=== PATIENT | male | born 1965 | race Caucasian/White ===

== ENCOUNTER 2017-08-04 16:38 | Inpatient (IN) | payer OTHER ==
[2017-08-04 20:00] VITALS: BP 133/78; PULSE 92; RESP 19; TEMP 96.8; O2SAT 97
[2017-08-04] MEDS ORDERED: SODIUM CHLORIDE 0.9% FLUSH 10 ML FLUSH IV FLUSH PRN (20:15)
[2017-08-04] MEDS ORDERED: NALOXONE HCL 0.4 MG/ML AMP IV PUSH PRN (20:15)
[2017-08-04] MEDS ORDERED: ONDANSETRON HCL 4 MG/2 ML VIAL IVP PRN (20:15)
--- NOTE | 2017-08-04 20:25 | HHI.HP ---
[facility] [place] [facility] Primary Care Physician Jorge Luis Medina MD Admission Diagnosis Diagnoses: Travel History International Travel<30 Days: No Contact w/Intl Traveler <30 Da: No Traveled to Known Affected Are: No History of Present Illness 52 year old male with no significant PMH presents to the ED for evaluation of abdominal pain. He stated having severe abd pain, worse in the LLQ, around 3: 15 pm yesterday. The patient reports that the pain continued to worsen and this afternoon became unbearable. He endorses associated N/V, denies diarrhea. Has has one non-bloody stool since pain onset. Has associated chills, no fevers. Denies CP/SOB. Review of Systems Except as stated in HPI: all other systems reviewed are Neg Past Family Social History Past Medical History None Past Surgical History None Reported Medications None Allergies: Coded Allergies: bacitracin (Verified Allergy, Unknown, 08/04/17) neomycin (Verified Allergy, Unknown, 08/04/17) polymyxin B (Verified Allergy, Unknown, 08/04/17) Family History Denies family history of CAD/DM Social History Quit tobacco 3 years ago. Continues to vape. Occasional EtOH and MJ. Denies other illicit drugs. Physical Exam Physical Exam GENERAL: male lying in bed SKIN: No rashes, ecchymoses or lesions. Cool and dry. HEAD: Atraumatic. Normocephalic. No temporal or scalp tenderness. EYES: Pupils equal round and reactive. Extraocular motions intact. No scleral icterus. No injection or drainage. ENT: Nose without bleeding, purulent drainage or septal hematoma. Throat without erythema, tonsillar hypertrophy or exudate. Uvula midline. Airway patent. NECK: Trachea midline. No JVD or lymphadenopathy. Supple, nontender, no meningeal signs. CARDIOVASCULAR: Regular rate and rhythm without murmurs, gallops, or rubs. RESPIRATORY: Clear to auscultation. Breath sounds equal bilaterally. No wheezes , rales, or rhonchi. GASTROINTESTINAL: Abdomen soft, nondistended. TTP in RLQ. No hepato- splenomegaly, or palpable masses. + guarding. MUSCULOSKELETAL: Extremities without clubbing, cyanosis, or edema. No joint tenderness, effusion, or edema noted. No calf tenderness. NEUROLOGICAL: Awake and alert. Cranial nerves II through XII intact. Motor and sensory grossly within normal limits. Normal speech. Caprini VTE Risk Assessment Caprini VTE Risk Assessment: No/Low Risk (score <= 1) Caprini Risk Assessment Model Point Value = 1 Point Value = 2 Point Value = 3 Point Value = 5 Age 41-60 Minor surgery BMI > 25 kg/m2 Swollen legs Varicose veins or History of unexplained or recurrent spontaneous Oral contraceptives or hormone replacement Sepsis (< 1 month) Serious lung disease, including pneumonia (< 1 month) Abnormal pulmonary function Acute myocardial infarction Congestive heart failure (< 1 month) History of inflammatory bowel disease Medical patient at bed rest Age 61-74 Arthroscopic surgery Major open surgery (> 45 min) Laparoscopic surgery (> 45 min) Malignancy Confined to bed (> 72 hours) Immobilizing plaster cast Central venous access Age >= 75 History of VTE Family history of VTE Factor V Leiden Prothrombin [id number] Lupus anticoagulant Anticardiolipin antibodies Elevated serum homocysteine Heparin-induced thrombocytopenia Other congenital or acquired thrombophilia Stroke (< 1 month) Elective arthroplasty Hip, pelvis, or leg fracture Acute spinal cord injury (< 1 month) Prophylaxis Regimen Total Risk Factor Score Risk Level Prophylaxis Regimen 0-1 Low Early ambulation 2 Moderate Order ONE of the following: *Sequential Compression Device (SCD) *Heparin 5000 units SQ BID 3-4 Higher Order ONE of the following medications: *Heparin 5000 units SQ TID *Enoxaparin/Lovenox 40 mg SQ daily (WT < 150 kg, CrCl > 30 mL/min) *Enoxaparin/Lovenox 30 mg SQ daily (WT < 150 kg, CrCl > 10-29 mL/min) *Enoxaparin/Lovenox 30 mg SQ BID (WT < 150 kg, CrCl > 30 mL/min) AND/OR *Sequential Compression Device (SCD) 5 or more Highest Order ONE of the following medications: *Heparin 5000 units SQ TID (Preferred with Epidurals) *Enoxaparin/Lovenox 40 mg SQ daily (WT < 150 kg, CrCl > 30 mL/min) *Enoxaparin/Lovenox 30 mg SQ daily (WT < 150 kg, CrCl > 10-29 mL/min) *Enoxaparin/Lovenox 30 mg SQ BID (WT < 150 kg, CrCl > 30 mL/min) AND *Sequential Compression Device (SCD) Assessment and Plan Assessment and Plan Assessment/Plan: 1. Acute Diverticulitis CT of Abd/pelvis significant for acute diverticulitis + Leukocytosis NPO Zosyn FEN NPO NS at 100 cc/hr Electrolytes: monitor and replete prn Early ambulation Physician Certification 2 Midnight Certification Type: Admission for Inpatient Services Order for Inpatient Services The services are ordered in accordance with Medicare regulations or non- Medicare payer requirements, as applicable. In the case of services not specified as inpatient-only, they are appropriately provided as inpatient services in accordance with the 2-midnight benchmark. Estimated LOS (days): 2 2 days is the estimated time the patient will need to remain in the hospital, assuming treatment plan goals are met and no additional complications. Post-Hospital Plan: Not yet determined Sabina Pratt MD Aug 04, 2017 20:25
[2017-08-05] VITALS: BP 107/53; PULSE 84; RESP 19; TEMP 99.4; O2SAT 96
[2017-08-05] MEDS ORDERED: PIPERACILLIN/TAZ 3.375 GM VIAL 3.375 GM in SODIUM CHLORIDE 0.9% INJ 50 ML IV SCH ×2
[2017-08-05] MEDS: PIPERACIL-TAZO 3.375 GM PREMIX 50 ML IV SCH ×4 (00:01→16:39)
[2017-08-05] MEDS: KETOROLAC TROMETHAMINE 30 MG/ML (IVP) VIAL IV PUSH PRN ×2 (00:01→06:35)
[2017-08-05] MEDS: SODIUM CHLORIDE 0.9% FLUSH 10 ML FLUSH IV FLUSH SCH ×4 (00:02→20:22)
[2017-08-05] MEDS: SODIUM CHLOR 0.9% 1000 ML INJ 1,000 ML IV SCH ×3 (00:02→16:39)
[2017-08-05 06:37] LABS: AUTOMATED NEUTROPHIL # 13.9 TH/MM3 (1.8-7.7); BASOPHIL # 0.1 TH/MM3 (0-0.2); BASOPHIL % 0.6 % (0.0-2.0); EOSINOPHIL # 0.1 TH/MM3 (0-0.4); EOSINOPHIL % 0.5 % (0.0-4.0); HEMATOCRIT 39.8 % (39.0-51.0); HEMOGLOBIN 13.8 GM/DL (13.0-17.0); LYMPH % 9.8 % (9.0-44.0); LYMPHOCYTE # 1.8 TH/MM3 (1.0-4.8); MEAN CELL VOLUME 89.1 FL (80.0-100.0); MEAN CORPUSCULAR HGB CONC 34.8 % (32.0-36.0); MEAN PLATELET VOLUME 7.1 FL (7.0-11.0); MONO % 11.1 % (0.0-8.0); PLATELET COUNT 293 TH/MM3 (150-450); RED BLOOD COUNT 4.47 MIL/MM3 (4.50-5.90); RED CELL DISTRIBUTION WIDTH 12.6 % (11.6-17.2); WHITE BLOOD COUNT 17.8 TH/MM3 (4.0-11.0)
[2017-08-05 07:04] LABS: BICARBONATE 25.2 MEQ/L (21.0-32.0); CALCIUM 8.6 MG/DL (8.5-10.1); CREATININE 0.9 MG/DL (0.60-1.30)
[2017-08-05 08:00] VITALS: BP 122/64; PULSE 64; RESP 18; TEMP 96.5; O2SAT 96
--- NOTE | 2017-08-05 11:12 | HHI.PR ---
Subjective Remarks 52 year old male with no significant PMH presents to the ED for evaluation of abdominal pain. He stated having severe abd pain, worse in the LLQ, around 3: 15 pm yesterday. The patient reports that the pain continued to worsen and this afternoon became unbearable. He endorses associated N/V, denies diarrhea. Has has one non-bloody stool since pain onset. Has associated chills, no fevers. Denies CP/SOB. 2-4 LESS ABDOMINAL PAIN TOLERATING LIQUID DIET AT THIS TIME DW RN AND CM Continue Zosyn IV A.m. laboratory data Objective Vitals Vital Signs Date Time Temp Pulse Resp B/P (MAP) Pulse Ox O2 Delivery O2 Flow Rate FiO2 08/05/17 08:00 96.5 64 18 122/64 (83) 96 08/05/17 00:00 99.4 84 19 107/53 (71) 96 08/04/17 20:00 96.8 92 19 133/78 (96) 97 I/O 08/04/17 08/04/17 08/04/17 08/05/17 08/05/17 08/05/17 07:00 15:00 23:00 07:00 15:00 23:00 Intake Total 590 ml 50 ml Balance 590 ml 50 ml Intake Oral 590 ml IV Total 50 ml # Voids 2 # Bowel Movements 0 Result Diagram: 08/05/17 0430 08/05/17 0430 Other Results Laboratory Tests Test 08/05/17 04:30 White Blood Count 17.8 TH/MM3 Red Blood Count 4.47 MIL/MM3 Hemoglobin 13.8 GM/DL Hematocrit 39.8 % Mean Corpuscular Volume 89.1 FL Mean Corpuscular Hemoglobin 31.0 PG Mean Corpuscular Hemoglobin Concent 34.8 % Red Cell Distribution Width 12.6 % Platelet Count 293 TH/MM3 Mean Platelet Volume 7.1 FL Neutrophils (%) (Auto) 78.0 % Lymphocytes (%) (Auto) 9.8 % Monocytes (%) (Auto) 11.1 % Eosinophils (%) (Auto) 0.5 % Basophils (%) (Auto) 0.6 % Neutrophils # (Auto) 13.9 TH/MM3 Lymphocytes # (Auto) 1.8 TH/MM3 Monocytes # (Auto) 2.0 TH/MM3 Eosinophils # (Auto) 0.1 TH/MM3 Basophils # (Auto) 0.1 TH/MM3 CBC Comment DIFF FINAL Differential Comment Blood Urea Nitrogen 19 MG/DL Creatinine 0.90 MG/DL Random Glucose 93 MG/DL Calcium Level 8.6 MG/DL Sodium Level 136 MEQ/L Potassium Level 3.4 MEQ/L Chloride Level 103 MEQ/L Carbon Dioxide Level 25.2 MEQ/L Anion Gap 8 MEQ/L Estimat Glomerular Filtration Rate 89 ML/MIN Imaging STONE,DAMIAN BECK HERNANDEZ Signed EXAM DATE/TIME: 08/04/2017 15:35 [place] COMPARISON: No previous studies available for comparison. INDICATIONS : Lower left quadrant pain. IV CONTRAST: 70 cc Omnipaque 350 (iohexol) IV ORAL CONTRAST: No oral contrast ingested. RADIATION DOSE: 12.47 CTDIvol (mGy) MEDICAL HISTORY : None SURGICAL HISTORY : None. ENCOUNTER: Initial ACUITY: 1 day PAIN SCALE: 7/10 LOCATION: Left lower quadrant TECHNIQUE: Volumetric scanning of the abdomen and pelvis was performed. Using automated exposure control and adjustment of the mA and/or kV according to patient size, radiation dose was kept as low as reasonably achievable to obtain optimal diagnostic quality images. DICOM format image data is available electronically for review and comparison. FINDINGS: CT Abdomen: The spleen, pancreas, adrenals are unremarkable. There is no evidence for any appreciable pathological adenopathy, free fluid, or bowel obstruction. Approximate 1.4 cm simple cyst is present in the right kidney with tiny cysts in the liver and the liver is questionably fatty. Tiny 2 mm stone is present in the right lower pole kidney with additional tiny cysts in both kidneys. CT pelvis: There is extensive inflammation surrounding the sigmoid colon and there are diverticuli at this site characteristic of fairly extensive acute diverticulitis. There is no evidence for mass, abscess formation, or any significant adenopathy within the pelvis. The prostate gland is inhomogeneous and measures 3.4 x 4.3 cm in AP and transverse diameters and nonspecific. There is prominent fat within bilateral inguinal canals without evidence for bowel herniation. CONCLUSION: Acute diverticulitis. Objective Remarks GENERAL: Alert oriented 3 talkative and cooperative in mild distress SKIN: Warm and dry. HEAD: Atraumatic. Normocephalic. EYES: Pupils equal and round. No scleral icterus. No injection or drainage. Extraocular muscles intact ENT: No nasal bleeding or discharge. Mucous membranes pink and moist. Tongue is midline NECK: Trachea midline. No JVD. Supple CARDIOVASCULAR: Regular rate and rhythm. S1 and S2 no S3 or S4 RESPIRATORY: No accessory muscle use. Clear to auscultation. Breath sounds equal bilaterally. GASTROINTESTINAL: Abdomen soft, mildly tender nondistended. Hepatic and splenic margins not palpable. MUSCULOSKELETAL: Extremities without clubbing, cyanosis, or edema. No obvious deformities. NEUROLOGICAL: Awake and alert. No obvious cranial nerve deficits. Motor grossly within normal limits. Five out of 5 muscle strength in the arms and legs. Normal speech. PSYCHIATRIC: Appropriate mood and affect; insight and judgment normal. Medications and IVs Current Medications Sodium Chloride 1,000 ml @ 100 mls/hr Q10H IV Last administered on 08/05/17at 06 :35; Start 08/04/17 at 20:01 Sodium Chloride (NS Flush) 2 ml UNSCH PRN IV FLUSH FLUSH AFTER USING IV ACCESS ; Start 08/04/17 at 20:15 Sodium Chloride (NS Flush) 2 ml BID IV FLUSH Last administered on 08/05/17at 00: 02; Start 08/04/17 at 21:00 Ondansetron HCl (Zofran Inj) 4 mg Q6H PRN IVP NAUSEA OR VOMITING Last administered on 08/05/17at 06:35; Start 08/04/17 at 20:15 Naloxone HCl (Narcan Inj) 0.4 mg UNSCH PRN IV PUSH SEE LABEL COMMENTS; Start at 20:15 Piperacillin Sod/ Tazobactam Sod 50 ml @ 100 mls/hr Q6H IV Last administered on 08/05/17at 06:35; Start 08/05/17 at 00:00 Piperacillin Sod/ Tazobactam Sod 3.375 gm/Sodium Chloride 50 ml @ 100 mls/hr Q6H IV ; Start 08/05/17 at 00:00; Status Cancel Ketorolac Tromethamine (Toradol Inj) 30 mg Q6HR PRN IV PUSH pain >5 Last administered on 08/05/17at 06:35; Start 08/04/17 at 23:00; Stop 08/09/17 at 22:59 A/P Assessment and Plan Assessment/Plan: 1. Acute Diverticulitis with leukocytosis CT of Abd/pelvis significant for acute diverticulitis + Leukocytosis continue on antibiotics Clear liquid diet Zosyn FEN Clear liquid diet NS at 100 cc/hr Electrolytes: monitor and replete prn Early ambulation A.m. labs Continue antibiotics Discharge Planning Pending improvement in labs Robert Ramos DO Aug 05, 2017 11:12
[2017-08-05 12:00] VITALS: BP 121/68; PULSE 55; RESP 16; TEMP 95.5; O2SAT 96
[2017-08-05] MEDS ORDERED: SENNOSIDES 8.6 MG TAB PO PRN (12:00)
[2017-08-05] MEDS ORDERED: ACETAMINOPHEN 325 MG TAB PO PRN ×2 (12:00)
[2017-08-05] MEDS ORDERED: METOCLOPRAMIDE HCL 10 MG/2 ML VIAL IV PUSH PRN (12:00)
[2017-08-05] MEDS ORDERED: ONDANSETRON HCL 4 MG/2 ML VIAL IVP PRN (12:00)
[2017-08-05] MEDS ORDERED: BISACODYL 10 MG SUPP RECTAL PRN (12:00)
[2017-08-05] MEDS ORDERED: oxyCODONE/ACETAMINOPHEN 10 MG/325 MG TAB PO PRN (12:00)
[2017-08-05] MEDS ORDERED: NALOXONE HCL 0.4 MG/ML AMP IV PUSH PRN (12:00)
[2017-08-05] MEDS ORDERED: MAGNESIUM HYDROXIDE SUSP 30 ML CUP PO PRN (12:00)
[2017-08-05] MEDS ORDERED: MORPHINE SULFATE 2 MG/ML INJ IV PUSH PRN ×3 (12:00)
[2017-08-05] MEDS ORDERED: SODIUM CHLORIDE 0.9% FLUSH 10 ML FLUSH IV FLUSH PRN (12:00)
[2017-08-05] MEDS ORDERED: LACTULOSE SYRUP 20 GM/30 ML CUP PO PRN (12:00)
[2017-08-05] MEDS: FAMOTIDINE 20 MG/2 ML VIAL IV PUSH SCH (12:32)
[2017-08-05 16:00] VITALS: BP 131/71; PULSE 61; RESP 18; TEMP 98; O2SAT 97
[2017-08-05 20:00] VITALS: BP 111/69; PULSE 90; RESP 18; TEMP 98.7; O2SAT 91
[2017-08-05] MEDS: DOCUSATE SODIUM 50 MG/SENNA 8.6 MG TAB PO SCH (20:22)
[2017-08-05] MEDS: oxyCODONE/ACETAMINOPHEN 5 MG/325 MG TAB PO PRN (20:22)
[2017-08-05] MEDS ORDERED: ZOLPIDEM TARTRATE 5 MG TAB PO PRN (21:00)
[2017-08-06] VITALS: BP 120/70; PULSE 70; RESP 18; TEMP 97.3; O2SAT 95
[2017-08-06] MEDS: FAMOTIDINE 20 MG/2 ML VIAL IV PUSH SCH ×2 (01:21→11:32)
[2017-08-06] MEDS: PIPERACIL-TAZO 3.375 GM PREMIX 50 ML IV SCH ×4 (01:21→16:38)
[2017-08-06] MEDS: MORPHINE SULFATE 2 MG/ML INJ IV PUSH PRN ×3 (01:26→14:54)
[2017-08-06] MEDS: oxyCODONE/ACETAMINOPHEN 5 MG/325 MG TAB PO PRN ×3 (04:23→20:09)
[2017-08-06] MEDS: SODIUM CHLOR 0.9% 1000 ML INJ 1,000 ML IV SCH ×3 (04:24→22:01)
[2017-08-06 04:38] LABS: AUTOMATED NEUTROPHIL # 9.5 TH/MM3 (1.8-7.7); BASOPHIL # 0.1 TH/MM3 (0-0.2); BASOPHIL % 0.8 % (0.0-2.0); EOSINOPHIL # 0.3 TH/MM3 (0-0.4); EOSINOPHIL % 2.3 % (0.0-4.0); HEMATOCRIT 37.1 % (39.0-51.0); HEMOGLOBIN 12.8 GM/DL (13.0-17.0); LYMPH % 14.5 % (9.0-44.0); LYMPHOCYTE # 1.9 TH/MM3 (1.0-4.8); MEAN CELL VOLUME 88.8 FL (80.0-100.0); MEAN CORPUSCULAR HEMOGLOBIN 30.6 PG (27.0-34.0); MEAN CORPUSCULAR HGB CONC 34.5 % (32.0-36.0); MEAN PLATELET VOLUME 6.6 FL (7.0-11.0); MONO % 9.6 % (0.0-8.0); MONOCYTE # 1.3 TH/MM3 (0-0.9); NEUT % 72.8 % (16.0-70.0); PLATELET COUNT 292 TH/MM3 (150-450); RED BLOOD COUNT 4.18 MIL/MM3 (4.50-5.90); RED CELL DISTRIBUTION WIDTH 12.7 % (11.6-17.2)
[2017-08-06 04:58] LABS: ALBUMIN 2.9 GM/DL (3.4-5.0); AST (GOT) 19 U/L (15-37); BICARBONATE 26.9 MEQ/L (21.0-32.0); BLOOD UREA NITROGEN 11 MG/DL (7-18); CALCIUM 7.8 MG/DL (8.5-10.1); CHLORIDE 107 MEQ/L (98-107); CREATININE 0.85 MG/DL (0.60-1.30); GLOMERULAR FILTRATION RATE 95 ML/MIN (>89); GLUCOSE,RANDOM 87 MG/DL (74-106); MAGNESIUM 2.4 MG/DL (1.5-2.5); SODIUM (NA) 139 MEQ/L (136-145)
[2017-08-06 05:09] LABS: ALKALINE PHOSPHATASE 66 U/L (45-117); ALT (GPT) 14 U/L (12-78); FREE T4 1.44 NG/DL (0.76-1.46); PHOSPHORUS 2.1 MG/DL (2.5-4.9); TOTAL BILIRUBIN ADULT 0.9 MG/DL (0.2-1.0); TOTAL PROTEIN 6.2 GM/DL (6.4-8.2)
[2017-08-06] MEDS: SODIUM CHLORIDE 0.9% FLUSH 10 ML FLUSH IV FLUSH SCH ×2 (07:43→20:10)
[2017-08-06] MEDS: DOCUSATE SODIUM 50 MG/SENNA 8.6 MG TAB PO SCH ×2 (07:48→20:10)
[2017-08-06 08:00] VITALS: BP 103/62; PULSE 71; RESP 18; TEMP 96.8; O2SAT 96
--- NOTE | 2017-08-06 09:39 | HHI.PR ---
Subjective Remarks in no acute distress. abdominal pain is better. no nausea or vomiting. afebrile. Objective Vitals Vital Signs Date Time Temp Pulse Resp B/P (MAP) Pulse Ox O2 Delivery O2 Flow Rate FiO2 08/06/17 08:00 96.8 71 18 103/62 (76) 96 08/06/17 00:00 97.3 70 18 120/70 (87) 95 08/05/17 20:00 98.7 90 18 111/69 (83) 91 08/05/17 16:00 98.0 61 18 131/71 (91) 97 08/05/17 12:00 95.5 55 16 121/68 (85) 96 08/05/17 12:00 95.5 55 16 121/68 (85) 96 I/O 08/05/17 08/05/17 08/05/17 08/06/17 08/06/17 08/06/17 07:00 15:00 23:00 07:00 15:00 23:00 Intake Total 590 ml 50 ml 2000 ml 1580 ml Balance 590 ml 50 ml 2000 ml 1580 ml Intake Oral 590 ml 2000 ml 480 ml IV Total 50 ml 1100 ml # Voids 2 5 3 # Bowel Movements 0 2 3 Result Diagram: 08/06/17 04208/06/17 042 Objective Remarks GENERAL: This is a well-nourished, well-developed patient, in no apparent distress. CARDIOVASCULAR: Regular rate and regular rhythm without murmurs, gallops, or rubs. RESPIRATORY: Clear to auscultation. Breath sounds equal bilaterally. No wheezes , rales, or rhonchi. GASTROINTESTINAL: Abdomen soft, mild LLQ tenderness, nondistended. Normal, active bowel sounds MUSCULOSKELETAL: Extremities without clubbing, cyanosis, or edema. NEURO: Alert & Oriented x4 to person, place, time, situation. Moves all ext x4 Medications and IVs Inpatient Medications Acetaminophen (Tylenol) 650 mg Q6H PRN PO PAIN SCALE 1 TO 2; Start 08/05/17 at 12:00 Bisacodyl (Dulcolax Supp) 10 mg DAILY PRN RECTAL SEVERE CONSITIPATION; Start at 12:00 Famotidine (Pepcid Inj) 20 mg Q12H IV PUSH Last administered on 08/06/17at 01:21 ; Start 08/05/17 at 12:00 Ketorolac Tromethamine (Toradol Inj) 30 mg Q6HR PRN IV PUSH pain >5 Last administered on 08/05/17at 06:35; Start 08/04/17 at 23:00; Stop 08/05/17 at 11:50; Status DC Lactulose (Lactulose Liq) 30 ml DAILY PRN PO SEVERE CONSITIPATION; Start at 12:00 Magnesium Hydroxide (Milk Of Magnesia Liq) 30 ml Q12H PRN PO Mild constipation ; Start 08/05/17 at 12:00 Metoclopramide HCl (Reglan Inj) 5 mg Q6H PRN IV PUSH NAUSEA OR VOMITING; Start 08/05/17 at 12:00 Morphine Sulfate (Morphine Inj) 4 mg Q3H PRN IV PUSH BREAKTHROUGH PAIN Last administered on 08/06/17at 07:44; Start 08/05/17 at 12:00 Naloxone HCl (Narcan Inj) 0.4 mg UNSCH PRN IV PUSH SEE LABEL COMMENTS; Start at 12:00 Ondansetron HCl (Zofran Inj) 4 mg Q6H PRN IVP NAUSEA OR VOMITING; Start at 12:00 Oxycodone/ Acetaminophen (Percocet 5-325 Mg) 1 tab Q6H PRN PO PAIN SCALE 3 TO 5 Last administered on 08/06/17at 04:23; Start 08/05/17 at 12:00 Oxycodone/ Acetaminophen (Percocet 10-325 Mg) 1 tab Q6H PRN PO PAIN SCALE 6 TO 10; Start 08/05/17 at 12:00 Piperacillin Sod/ Tazobactam Sod 50 ml @ 100 mls/hr Q6H IV Last administered on 08/06/17at 04:26; Start 08/05/17 at 00:00 Senna/Docusate Sodium (Anastasiia-Colace) 1 tab BID PO ; Start 08/05/17 at 21:00 Sennosides (Senokot) 17.2 mg Q12H PRN PO Moderate constipation; Start 08/05/17 at 12:00 Sodium Chloride (NS Flush) 2 ml BID IV FLUSH ; Start 08/05/17 at 12:00 Zolpidem Tartrate (Ambien) 5 mg HS PRN PO INSOMNIA; Start 08/05/17 at 21:00 A/P Assessment and Plan 1. Acute Diverticulitis with leukocytosis CT of Abd/pelvis significant for acute diverticulitis clinically improving- continue IV antibiotic. advance the diet to full liquid for today. 2- hypophosphatemia; will replace. Discharge Planning dc home tomorrow if continues to improve and tolerates the diet. Jesus Dale MD Aug 06, 2017 09:39
[2017-08-06] MEDS: POTASSIUM PHOSPHATE/SODIUM PHOSPHATE 250 MG TAB PO SCH ×3 (10:52→20:09)
[2017-08-06 12:00] VITALS: BP 121/69; PULSE 69; RESP 18; TEMP 96.8; O2SAT 94
[2017-08-06] MEDS ORDERED: METR-1 PO (13:58)
[2017-08-06] MEDS ORDERED: OXYC1TAB63 PO (13:58)
[2017-08-06] MEDS ORDERED: CIPR-9 PO (13:58)
--- NOTE | 2017-08-06 14:01 | HHI.DS ---
Discharge Summary Admission Date Aug 04, 2017 at 19:08 Discharge Date: Aug 07, 2017 Admitting Diagnosis acute diverticulitis (1) Acute diverticulitis ICD Code: K57.92 - Diverticulitis of intestine, part unspecified, without perforation or abscess without bleeding Diagnosis: Principal Procedures none Brief History - From Admission 52 year old male with no significant PMH presents to the ED for evaluation of abdominal pain. He stated having severe abd pain, worse in the LLQ, around 3: 15 pm yesterday. The patient reports that the pain continued to worsen and this afternoon became unbearable. He endorses associated N/V, denies diarrhea. Has has one non-bloody stool since pain onset. Has associated chills, no fevers. Denies CP/SOB. CBC/BMP: 08/06/17 0422 08/06/17 0422 Significant Findings Laboratory Tests Test 08/05/17 04:30 08/06/17 04:22 White Blood Count 17.8 TH/MM3 (4.0-11.0) 13.0 TH/MM3 (4.0-11.0) Red Blood Count 4.47 MIL/MM3 (4.50-5.90) 4.18 MIL/MM3 (4.50-5.90) Neutrophils (%) (Auto) 78.0 % (16.0-70.0) 72.8 % (16.0-70.0) Monocytes (%) (Auto) 11.1 % (0.0-8.0) 9.6 % (0.0-8.0) Neutrophils # (Auto) 13.9 TH/MM3 (1.8-7.7) 9.5 TH/MM3 (1.8-7.7) Monocytes # (Auto) 2.0 TH/MM3 (0-0.9) 1.3 TH/MM3 (0-0.9) Blood Urea Nitrogen 19 MG/DL (7-18) Potassium Level 3.4 MEQ/L (3.5-5.1) Hemoglobin 12.8 GM/DL (13.0-17.0) Hematocrit 37.1 % (39.0-51.0) Mean Platelet Volume 6.6 FL (7.0-11.0) Total Protein 6.2 GM/DL (6.4-8.2) Albumin 2.9 GM/DL (3.4-5.0) Calcium Level 7.8 MG/DL (8.5-10.1) Phosphorus Level 2.1 MG/DL (2.5-4.9) Thyroid Stimulating Hormone 3rd Gen 5.970 uIU/ML (0.358-3.740) PE at Discharge GENERAL: This is a well-nourished, well-developed patient, in no apparent distress. CARDIOVASCULAR: Regular rate and regular rhythm without murmurs, gallops, or rubs. RESPIRATORY: Clear to auscultation. Breath sounds equal bilaterally. No wheezes , rales, or rhonchi. GASTROINTESTINAL: Abdomen soft, mild LLQ tenderness, nondistended. Normal, active bowel sounds MUSCULOSKELETAL: Extremities without clubbing, cyanosis, or edema. NEURO: Alert & Oriented x4 to person, place, time, situation. Moves all ext x4 Hospital Course patient was admitted with acute diverticulitis. he was started on IV antibiotic and supportive care with pain control. his abdominal pain subsided . he will be switched to po antibiotics and f/u with his PCP upon discharge. he was advised to have a f/u with GI for colonoscopy. Pt Condition on Discharge: Good Discharge Disposition: Discharge Home Discharge Time: <= 30 minutes Discharge Instructions DIET: Follow Instructions for: Low Residue Diet Activities you can perform: Regular-No Restrictions Jesus Dale MD Aug 06, 2017 14:01
[2017-08-06 15:55] LABS: HEMOGLOBIN A1C 4.9 % (4.3-6.0)
[2017-08-06 16:00] VITALS: BP 120/77; PULSE 71; RESP 16; TEMP 97.7; O2SAT 96
[2017-08-06 22:00] VITALS: BP 120/72; PULSE 95; RESP 18; TEMP 98.6; O2SAT 95
[2017-08-07] MEDS: PIPERACIL-TAZO 3.375 GM PREMIX 50 ML IV SCH ×2 (00:23→05:50)
[2017-08-07] MEDS: FAMOTIDINE 20 MG/2 ML VIAL IV PUSH SCH (00:23)
[2017-08-07] MEDS: MORPHINE SULFATE 2 MG/ML INJ IV PUSH PRN ×2 (00:28→07:35)
[2017-08-07] MEDS: oxyCODONE/ACETAMINOPHEN 5 MG/325 MG TAB PO PRN ×2 (04:09→11:48)
[2017-08-07] MEDS: SODIUM CHLOR 0.9% 1000 ML INJ 1,000 ML IV SCH (04:10)
[2017-08-07] MEDS: POTASSIUM PHOSPHATE/SODIUM PHOSPHATE 250 MG TAB PO SCH (05:50)
[2017-08-07 07:30] LABS: AUTOMATED NEUTROPHIL # 6.6 TH/MM3 (1.8-7.7); BASOPHIL # 0.1 TH/MM3 (0-0.2); BASOPHIL % 0.9 % (0.0-2.0); EOSINOPHIL # 0.3 TH/MM3 (0-0.4); EOSINOPHIL % 3.2 % (0.0-4.0); HEMATOCRIT 35.3 % (39.0-51.0); HEMOGLOBIN 12.3 GM/DL (13.0-17.0); LYMPHOCYTE # 1.6 TH/MM3 (1.0-4.8); MEAN CORPUSCULAR HEMOGLOBIN 31.1 PG (27.0-34.0); MEAN CORPUSCULAR HGB CONC 34.9 % (32.0-36.0); MEAN PLATELET VOLUME 6.7 FL (7.0-11.0); MONO % 11.7 % (0.0-8.0); MONOCYTE # 1.1 TH/MM3 (0-0.9); NEUT % 68.2 % (16.0-70.0); PLATELET COUNT 310 TH/MM3 (150-450); RED BLOOD COUNT 3.97 MIL/MM3 (4.50-5.90); RED CELL DISTRIBUTION WIDTH 12.4 % (11.6-17.2); WHITE BLOOD COUNT 9.7 TH/MM3 (4.0-11.0)
[2017-08-07] MEDS: SODIUM CHLORIDE 0.9% FLUSH 10 ML FLUSH IV FLUSH SCH (07:31)
[2017-08-07] MEDS: DOCUSATE SODIUM 50 MG/SENNA 8.6 MG TAB PO SCH (07:32)
[2017-08-07 08:00] VITALS: BP 109/58; PULSE 68; RESP 17; TEMP 97; O2SAT 96
--- NOTE | 2017-08-07 08:12 | HHI.PR ---
Subjective Remarks in no acute distress. abdominal pain is much better. no nausea or vomiting. afebrile. Objective Vitals Vital Signs Date Time Temp Pulse Resp B/P (MAP) Pulse Ox O2 Delivery O2 Flow Rate FiO2 08/06/17 22:00 98.6 95 18 120/72 (88) 95 08/06/17 16:00 97.7 71 16 120/77 (91) 96 08/06/17 12:27 17 08/06/17 12:00 96.8 69 18 121/69 (86) 94 I/O 08/06/17 08/06/17 08/06/17 08/07/17 08/07/17 08/07/17 07:00 15:00 23:00 07:00 15:00 23:00 Intake Total 1580 ml 690 ml 1050 ml Balance 1580 ml 690 ml 1050 ml Intake Oral 480 ml 640 ml IV Total 1100 ml 50 ml 1050 ml # Voids 3 3 # Bowel Movements 3 1 Result Diagram: 08/07/17 0653 08/06/17 0422 Objective Remarks GENERAL: This is a well-nourished, well-developed patient, in no apparent distress. CARDIOVASCULAR: Regular rate and regular rhythm without murmurs, gallops, or rubs. RESPIRATORY: Clear to auscultation. Breath sounds equal bilaterally. No wheezes , rales, or rhonchi. GASTROINTESTINAL: Abdomen soft, mild LLQ tenderness, nondistended. Normal, active bowel sounds MUSCULOSKELETAL: Extremities without clubbing, cyanosis, or edema. NEURO: Alert & Oriented x4 to person, place, time, situation. Moves all ext x4 Procedures none Medications and IVs Inpatient Medications Acetaminophen (Tylenol) 650 mg Q6H PRN PO PAIN SCALE 1 TO 2; Start 08/05/17 at 12:00 Bisacodyl (Dulcolax Supp) 10 mg DAILY PRN RECTAL SEVERE CONSITIPATION; Start at 12:00 Famotidine (Pepcid Inj) 20 mg Q12H IV PUSH Last administered on 08/07/17at 00:23 ; Start 08/05/17 at 12:00 Ketorolac Tromethamine (Toradol Inj) 30 mg Q6HR PRN IV PUSH pain >5 Last administered on 08/05/17at 06:35; Start 08/04/17 at 23:00; Stop 08/05/17 at 11:50; Status DC Lactulose (Lactulose Liq) 30 ml DAILY PRN PO SEVERE CONSITIPATION; Start at 12:00 Magnesium Hydroxide (Milk Of Magnesia Liq) 30 ml Q12H PRN PO Mild constipation ; Start 08/05/17 at 12:00 Metoclopramide HCl (Reglan Inj) 5 mg Q6H PRN IV PUSH NAUSEA OR VOMITING; Start 08/05/17 at 12:00 Morphine Sulfate (Morphine Inj) 4 mg Q3H PRN IV PUSH BREAKTHROUGH PAIN Last administered on 08/07/17at 07:35; Start 08/05/17 at 12:00 Naloxone HCl (Narcan Inj) 0.4 mg UNSCH PRN IV PUSH SEE LABEL COMMENTS; Start at 12:00 Ondansetron HCl (Zofran Inj) 4 mg Q6H PRN IVP NAUSEA OR VOMITING; Start at 12:00 Oxycodone/ Acetaminophen (Percocet 5-325 Mg) 1 tab Q6H PRN PO PAIN SCALE 3 TO 5 Last administered on 08/07/17at 04:09; Start 08/05/17 at 12:00 Oxycodone/ Acetaminophen (Percocet 10-325 Mg) 1 tab Q6H PRN PO PAIN SCALE 6 TO 10; Start 08/05/17 at 12:00 Piperacillin Sod/ Tazobactam Sod 50 ml @ 100 mls/hr Q6H IV Last administered on 08/07/17at 05:50; Start 08/05/17 at 00:00 Potassium Phos/ Sodium Phos (K-Phos Neutral) 250 mg Q8HR PO Last administered on 08/07/17at 05:50; Start 08/06/17 at 09:30 Senna/Docusate Sodium (Anastasiia-Colace) 1 tab BID PO ; Start 08/05/17 at 21:00 Sennosides (Senokot) 17.2 mg Q12H PRN PO Moderate constipation; Start 08/05/17 at 12:00 Sodium Chloride (NS Flush) 2 ml BID IV FLUSH ; Start 08/05/17 at 12:00 Zolpidem Tartrate (Ambien) 5 mg HS PRN PO INSOMNIA; Start 08/05/17 at 21:00 A/P Problem List: (1) Acute diverticulitis ICD Code: K57.92 - Diverticulitis of intestine, part unspecified, without perforation or abscess without bleeding Assessment and Plan 1. Acute Diverticulitis with leukocytosis- improved. CT of Abd/pelvis significant for acute diverticulitis clinically improving- switch to po antibiotics. advance the diet. 2- hypophosphatemia;replaced. Discharge Planning dc home this afternoon if tolerates the diet. see med list. f/u; pcp. d/w the patient. Jesus Dale MD Aug 07, 2017 08:12
[2017-08-07 12:00] VITALS: BP 110/63; PULSE 71; RESP 17; TEMP 97.5; O2SAT 96
== END 2017-08-07 13:08 | disposition home or self-care (01) | DRG 392 ==
LOC: NEDDLT 16:38 → N07B 19:08
PROVIDERS: ADMIT Internal Medicine; ATTEND Internal Medicine
DX: K57.32 Diverticulitis of large intestine without perforation or abscess without bleeding (principal); E83.39 Other disorders of phosphorus metabolism; Z87.891 Personal history of nicotine dependence
CPT/HCPCS: 80048; 80053; 83036; 83735; 84100; 84439; 84443; 85025; 94150; J1885; J2270; J2405; J2543; J7030